=== PATIENT | male | born 1970 | race Caucasian/White ===

== ENCOUNTER 2018-04-11 10:58 | Emergency (ER) | payer MEDICAID ==
[2018-04-11 12:15] LABS: BASO # 0.1 K/uL (0.0-0.2); BASO % 0.8 % (0.0-2.0); EOS # 0.1 K/uL (0.0-0.7); EOS % 1.5 % (0.0-4.0); HEMOGLOBIN 14.7 g/dL (12.0-18.0); LYMPH # 4.1 K/uL (1.0-4.3); LYMPH % 54.8 % (20.0-40.0); MEAN CELL VOLUME 93.9 fL (80.0-94.0); MEAN PLATELET VOLUME 7.8 fL (7.2-11.7); MONO # 0.7 K/uL (0.0-0.8); MONO % 9.5 % (0.0-10.0); NEUT # 2.5 K/uL (1.8-7.0); NEUT % 33.4 % (50.0-75.0); NRBC % 0.1 % (0.0-2.0); RBC 4.6 Mil/uL (4.40-5.90); RED CELL DISTRIBUTION WIDTH 13.8 % (11.5-14.5); WHITE BLOOD COUNT 7.5 K/uL (4.8-10.8)
[2018-04-11] MEDS ORDERED: Sodium Chloride 0.9% 1,000 ML IV ONE (12:24)
[2018-04-11 12:39] LABS: ALB/GLOB RATIO 1.3 (1.0-2.1); ALBUMIN 4.7 g/dL (3.5-5.0); ALT/SGPT 35 U/L (21-72); AST/SGOT 40 U/L (17-59); BLOOD UREA NITROGEN 10 mg/dL (9-20); CALCIUM 9.1 mg/dl (8.6-10.4); GFR AFRICAN-AMERICAN > 60; GFR NON-AFRICAN AMERICAN > 60; LIPASE 209 U/L (23-300)
[2018-04-11 12:45] LABS: URINE BILIRUBIN NEGATIVE (NEGATIVE); URINE BLOOD 1+ (NEGATIVE); URINE CLARITY Clear (Clear); URINE COLOR Yellow (YELLOW); URINE GLUCOSE (UA) NORMAL (Normal); URINE LEUKOCYTE ESTERASE NEG Leu/uL (Negative); URINE PROTEIN NEGATIVE (NEGATIVE); URINE UROBILINOGEN NORMAL mg/dL (0.2-1.0)
[2018-04-11] MEDS ORDERED: Sodium Chloride 0.9% 1,000 ML ONE (13:32)
[2018-04-11 13:36] VITALS: RESP 18; O2SAT 98
--- NOTE | 2018-04-11 14:06 | C.PDOC ---
History Of Present Illness 47-year-old male presents to the emergency department with complaints of left lower quadrant abdominal pain for the past several months, worse today whcih promted ER visit. Patient was told by his doctor that he may have diverticulitis. He denies nausea/vomiting, diarrhea, fever, dysuria/hematria, flank pain or any other associated symptoms. Time Seen by Provider: 04/11/18 11:40 Chief Complaint (Nursing): Abdominal Pain History Per: Patient History/Exam Limitations: no limitations Current Symptoms Are (Timing): Still Present Severity: Moderate Location Of Pain/Discomfort: LLQ Quality Of Discomfort: "Pain" Associated Symptoms: denies: Vomiting, Diarrhea Past Medical History Reviewed: Historical Data, Nursing Documentation, Vital Signs Vital Signs: Last Vital Signs Temp 98.2 F 04/11/18 15:38 Pulse 78 04/11/18 15:38 Resp 18 04/11/18 15:38 BP 142/65 04/11/18 15:38 Pulse Ox 98 04/11/18 15:38 - Medical History PMH: Diverticulitis, HTN Family History: States: No Known Family Hx - Social History Hx Alcohol Use: No Hx Substance Use: No - Immunization History Hx Tetanus Toxoid Vaccination: No Hx Influenza Vaccination: No Hx Pneumococcal Vaccination: No Review Of Systems Constitutional: Negative for: Fever, Chills Cardiovascular: Negative for: Chest Pain, Palpitations Respiratory: Negative for: Shortness of Breath Gastrointestinal: Positive for: Abdominal Pain. Negative for: Nausea, Vomiting Musculoskeletal: Negative for: Back Pain Skin: Negative for: Rash Neurological: Negative for: Weakness, Numbness, Headache, Dizziness Physical Exam - Physical Exam Appears: Well, Non-toxic, No Acute Distress Skin: Normal Color, Warm, Dry, No Rash Eye(s): bilateral: Normal Inspection Oral Mucosa: Moist Cardiovascular: Rhythm Regular Respiratory: Normal Breath Sounds, No Rales, No Rhonchi, No Wheezing Gastrointestinal/Abdominal: Bowel Sounds, Soft, Tenderness (LLQ mild TTP. (-) McBurney's.), No Guarding, No Rebound Back: No CVA Tenderness Extremity: Normal ROM, No Deformity, No Swelling Neurological/Psych: Oriented x3 ED Course And Treatment - Laboratory Results Result Diagrams: 04/11/18 11:58 04/11/18 11:58 O2 Sat by Pulse Oximetry: 98 (RA) Pulse Ox Interpretation: Normal - CT Scan/US ct abd/pelvis Other Rad Studies (CT/US): Read By Radiologist, Radiology Report Reviewed CT/US Interpretation: Accession No. : [id number]. Patient Name / ID : NIKKY MENDOZA / [id number]. Exam Date : 04/11/2018 14:13:49 ( Approved ). Study Comment : Sex / Age : M / 47Y. Creator : Leonel French MD. Dictator : Leonel French MD. Mailing Machine Operator : Mcat Instructor : Leonel French MD. Approver2 : Report Date : 04/11/2018 14:36:26. My Comment : . PROCEDURE: CT Abdomen and Pelvis with contrast. HISTORY: LLQ PAIN R/O DIVERTICULITIS. COMPARISON: None. TECHNIQUE: Contrast dose: 100 mL Visipaque 320. Radiation dose: Total exam DLP = 1227.85 mGy-cm. This CT exam was performed using one or more of the following dose reduction techniques: Automated exposure control, adjustment of the mA and/or kV according to patient size, and/or use of iterative reconstruction technique. FINDINGS: LOWER THORAX: Unremarkable. LIVER: Normal size, contour and attenuation. No mass. Nodular calcification in the caudate lobe, possibly granulomatous. GALLBLADDER AND BILE DUCTS: Unremarkable. PANCREAS: Unremarkable. No gross lesion or ductal dilatation. SPLEEN: Unremarkable. ADRENALS: Unremarkable. No mass. KIDNEYS AND URETERS: Unremarkable. No hydronephrosis. No solid mass. VASCULATURE: Unremarkable. No aortic aneurysm. BOWEL: Scattered colonic diverticula. No evidence of diverticulitis. No bowel obstruction. APPENDIX: Normal appendix. PERITONEUM: Unremarkable. No free fluid. No free air. LYMPH NODES: Unremarkable. No enlarged lymph nodes. BLADDER: Unremarkable. REPRODUCTIVE: Normal prostate. BONES: No acute fracture. OTHER FINDINGS: None. IMPRESSION: No acute abnormality. Scattered colonic diverticulae without evidence of diverticulitis. Progress Note: Blood work, UA, CT scan Abd/Pel ordered and reviewed. Patient given IV NS bolus, IV Morphine. Reevaluation Time: 15:10 Reassessment Condition: Improved (Patient reassessed, is resting comfortably and denies current abdominal pain. On exam, abdomen is soft and nontender. CT scan (-) for acute diverticulitis or other acute abnormality. Patient is well appearing and comfortable being discharged home at this time. He was instructed to follow up with GI within 1 week , and understands he should return to ED if symptoms worsen.) Medical Decision Making Medical Decision Making: differential diagnoses considered: diverticulitis, colitis, renal colic, UTI/ pyelonephritis, gastroenteritis, AAA, SBO, hernia Disposition Counseled Patient/Family Regarding: Studies Performed, Diagnosis, Need For Followup - Disposition Referrals: Cristian Manzano MD [Staff Provider] - [facility] [Outside] Disposition: HOME/ ROUTINE Disposition Time: 15:10 Condition: STABLE Additional Instructions: FOLLOW UP WITH ADVISORY INTERN WITHIN 1 WEEK RETURN TO EMERGENCY ROOM IF SYMPTOMS WORSEN Instructions: Diverticulosis (DC) Forms: [employer] (Luxembourgish) Print Language: ICELANDIC - POA Present On Arrival: None - Clinical Impression Clinical Impression: Diverticulosis - Scribe Statement The provider has reviewed the documentation as recorded by the Amanda White Provider Attestation: All medical record entries made by the Amanda were at my direction and personally dictated by me. I have reviewed the chart and agree that the record accurately reflects my personal performance of the history, physical exam, medical decision making, and the department course for this patient. I have also personally directed, reviewed, and agree with the discharge instructions and disposition.
[2018-04-11] MEDS ORDERED: Iodixanol 320 MG/ML 100 ML BOTTLE IV ONE (14:07)
--- NOTE | 2018-04-11 14:37 | CT ---
PROCEDURE: CT Abdomen and Pelvis with contrast HISTORY: LLQ PAIN R/O DIVERTICULITIS COMPARISON: None. TECHNIQUE: Contrast dose: 100 mL Visipaque 320 Radiation dose: Total exam DLP = 1227.85 mGy-cm. This CT exam was performed using one or more of the following dose reduction techniques: Automated exposure control, adjustment of the mA and/or kV according to patient size, and/or use of iterative reconstruction technique. FINDINGS: LOWER THORAX: Unremarkable. LIVER: Normal size, contour and attenuation. No mass. Nodular calcification in the caudate lobe, possibly granulomatous. GALLBLADDER AND BILE DUCTS: Unremarkable. PANCREAS: Unremarkable. No gross lesion or ductal dilatation. SPLEEN: Unremarkable. ADRENALS: Unremarkable. No mass. KIDNEYS AND URETERS: Unremarkable. No hydronephrosis. No solid mass. VASCULATURE: Unremarkable. No aortic aneurysm. BOWEL: Scattered colonic diverticula. No evidence of diverticulitis. No bowel obstruction. APPENDIX: Normal appendix. PERITONEUM: Unremarkable. No free fluid. No free air. LYMPH NODES: Unremarkable. No enlarged lymph nodes. BLADDER: Unremarkable. REPRODUCTIVE: Normal prostate BONES: No acute fracture. OTHER FINDINGS: None. IMPRESSION: No acute abnormality. Scattered colonic diverticulae without evidence of diverticulitis.
[2018-04-11 15:38] VITALS: BP 142/65; PULSE 78; TEMP 98.2
== END 2018-04-11 15:39 | disposition home or self-care (01) ==
LOC: C.ER 10:58
DX: K57.30 Diverticulosis of large intestine without perforation or abscess without bleeding (principal)
CPT/HCPCS: 74177; 80053; 81001; 83690; 85025; 96361; 96374; 99285; J2270; J7030; Q9967

== ENCOUNTER 2019-01-15 20:31 | Emergency (ER) | payer MEDICAID ==
[2019-01-15 21:25] VITALS: BP 146/96; PULSE 81; RESP 18; TEMP 98.1; O2SAT 98
--- NOTE | 2019-01-15 22:23 | C.PDOC ---
History Of Present Illness 48 year old male was at work throwing pieces of wood when a piece bounced back and hit his left 2nd toe. Denies weakness or numbness. Time Seen by Provider: 01/15/19 21:32 Chief Complaint (Nursing): Lower Extremity Problem/Injury History Per: Patient History/Exam Limitations: no limitations Onset/Duration Of Symptoms: Hrs Current Symptoms Are (Timing): Still Present Recent travel outside of the [place]: No - Ankle/Foot Description Of Injury: Struck With Object Past Medical History Reviewed: Historical Data, Nursing Documentation, Vital Signs Vital Signs: Last Vital Signs Temp 98.1 F 01/15/19 21:20 Pulse 81 01/15/19 21:20 Resp 18 01/15/19 21:20 BP 146/96 H 01/15/19 21:20 Pulse Ox 98 01/15/19 21:20 - Medical History PMH: Diverticulitis, HTN Family History: States: Unknown Family Hx - Social History Hx Alcohol Use: Yes Hx Substance Use: No - Immunization History Hx Tetanus Toxoid Vaccination: No Hx Influenza Vaccination: No Hx Pneumococcal Vaccination: No Review Of Systems Musculoskeletal: Positive for: Foot Pain Neurological: Negative for: Weakness, Numbness Physical Exam - Physical Exam Appears: Non-toxic Skin: Warm, Dry Head: Atraumatic, Normacephalic Eye(s): bilateral: Normal Inspection Extremity: Other (Swollen ecchymotic left 2nd toe) Pulses: Left Dorsalis Pedis: Normal, Right Dorsalis Pedis: Normal Neurological/Psych: Oriented x3, Normal Speech, Normal Motor, Normal Sensation ED Course And Treatment O2 Sat by Pulse Oximetry: 98 (Room air) Pulse Ox Interpretation: Normal - Other Rad Left foot x-ray X-Ray: Interpreted by Me, Viewed By Me Interpretation: Nondisplaced fracture of second distal phalanx. Progress Note: X-ray was positive for fracture, toe was thanh taped, patient placed in orthoshoe, and patient advised to follow up with podiatry. Disposition - Disposition Referrals: Jessi Samuel DPM [Staff Provider] - Disposition: HOME/ ROUTINE Disposition Time: 22:25 Condition: STABLE Additional Instructions: Follow up with Cylinder Valve Repairer within 1-2 days. Return to ED if feel worse. 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 - Scribe Statement The provider has reviewed the documentation as recorded by the Scribcaesar Sellers All medical record entries made by the Laurelibe were at my direction and personally dictated by me. I have reviewed the chart and agree that the record accurately reflects my personal performance of the history, physical exam, medical decision making, and the department course for this patient. I have also personally directed, reviewed, and agree with the discharge instructions and disposition.
--- NOTE | 2019-01-16 09:50 | RAD ---
Date of service: 01/15/2019 PROCEDURE: HISTORY: heavy object fell on his foot COMPARISON: None TECHNIQUE: Three views FINDINGS: Comminuted fractures 2nd distal [id number] extension present. Overlying soft tissue swelling present. Atherosclerotic vascular calcifications present.. Minimal mid foot arthrosis. No dislocation. IMPRESSION: Comminuted nondisplaced intra-articular fractures 2nd distal phalanx. Other findings as above. Comments: Study marked for PA review .
== END 2019-01-15 22:37 | disposition home or self-care (01) ==
LOC: C.ER 20:31
DX: S92.535A Nondisplaced fracture of distal phalanx of left lesser toe(s), initial encounter for closed fracture (principal); W22.8XXA Striking against or struck by other objects, initial encounter; Y92.89 Other specified places as the place of occurrence of the external cause; Y99.0 Civilian activity done for income or pay